=== PATIENT | female | born 1995 | race Caucasian/White ===

== ENCOUNTER 2025-09-22 14:01 | Emergency (ER) | payer OTHER, SELFPAY ==
[2025-09-22 14:03] VITALS: BP 115/81; PULSE 91; RESP 18; TEMP 36.2; O2SAT 99; BMI 21.1
[2025-09-22 15:03] VITALS: BP 105/85; BP 111/76; BP 112/71; PULSE 70; PULSE 77; PULSE 86
[2025-09-22 15:33] LABS: Hematocrit 37.7 % (37-47); Hemoglobin 13.5 g/dL (12.0-15.0); Immature Granulocytes Count 0.030 X10^3/uL (0.0-0.0); Mean Corp Hgb Conc 35.8 g/dL (32-36); Mean Corpuscular Volume 87.5 fL (81-99); Mean Platelet Vol. 10.9 fl (6.2-12.0); NRBC Flagged by Analyzer 0 % (0-5); Platelet Count 148 K/mm3 (150-450); RBC Distribution Width CV 13.6 % (11.6-14.6); RBC Distribution Width SD 44.0 fl (35.1-43.9); Red Blood Count 4.31 M/mm3 (4.2-5.4); White Blood Count 6.1 K/mm3 (4.4-11.0)
[2025-09-22 15:49] LABS: AST(SGOT) 24 U/L (<=31); Alanine Aminotransfer ALT/SGPT 24 U/L (<=34); Albumin, Serum 3.8 g/dL (3.5-5.0); Alkaline Phosphatase 115 U/L (35-104); Anion Gap 8 (5-15); BUN 15 mg/dL (4-19); BUN/Creat Ratio 15.2 RATIO (10-20); Calcium,Total 8.6 mg/dL (7.6-11.0); Carbon Dioxide 23.6 mmol/L (21.0-32.0); Chloride 105 mmol/L (98-108); Estimated Creatinine Clearance 61.39 ml/min (50-250); Globulin 2.4 g/dL (2.2-4.2); Glucose 112 mg/dL (70-99); Potassium 3.9 mmol/L (3.3-5.1)
--- NOTE | 2025-09-22 16:13 | EDS_ITS ---
HPI History of Present Illness Chief Complaint: Hypotension Informant: patient Narrative Narrative: 30-year-old female presenting to the emergency room chief complaint of hypotension. Patient states that she took her labetalol and amlodipine today but an hour and a half later was feeling weak and took her blood pressure and had a systolic in the 80s. She states that she has a history of lupus as well as nephritis has been working over the past several months to improve her kidney function. She follows with all of her care through [facility] in [place]. No syncope. No palpitations no chest pain. Patient states she has been eating and drinking well. PFSH PFSH Allergy/AdvReac Type Severity Reaction Status Date / Time grape Allergy Swelling Verified 09/22/25 14:06 lisinopril Allergy Swelling Verified 09/22/25 14:06 oxcarbazepine (From Allergy Hives Verified 09/22/25 14:06 Trileptal) primidone Allergy Other Verified 09/22/25 14:06 pumpkin Allergy Anaphylaxis Verified 09/22/25 14:06 strawberry Allergy Swelling Verified 09/22/25 14:06 ROS ROS ED Constitutional Constitutional ED: Denies chills, fever(s) or weight loss Eyes Eyes: Denies change in vision or diplopia ENT ENT ED: Denies ear pain, rhinorrhea or sore throat Cardiovascular Cardiovascular: Denies chest pain, orthopnea, palpitations or racing heartbeat Respiratory/Chest Respiratory/Chest: Denies cough, dyspnea or orthopnea Gastrointestinal Gastrointestinal: Denies abdominal pain, diarrhea, nausea or vomiting Genitourinary Genitourinary ED: Denies dysuria, hematuria or urinary frequency Musculoskeletal Musculoskeletal: Denies arthralgias or myalgias Integumentary Denies abscess or rash Neurologic Neurologic: Denies headache(s) or weakness Psychiatric Psychiatric: Denies anxiety, depression, suicidal ideation or suicidal thoughts Endocrine Endocrinology: Denies polydipsia, polyphagia or polyuria Allergic/Immunologic Allergic/Immunologic ED: Denies mouth swelling, tongue swelling or urticaria EXAM Physical Exam Const Vital Signs: 09/22/25 14:03 09/22/25 15:03 Temperature 97.2 F L Temperature Source Temporal Pulse Rate 91 Pulse Rate [Lying] 70 Pulse Rate [Sitting (for 1 minute prior to obtaining)] 77 Pulse Rate [Standing (for 1 minute prior to obtaining)] 86 Respiratory Rate 18 Blood Pressure 115/81 H Blood Pressure [Lying] 112/71 Blood Pressure [Sitting (for 1 minute prior to obtaining)] 111/76 Blood Pressure [Standing (for 1 minute prior to obtaining)] 105/85 H Blood Pressure Mean 92 Blood Pressure Mean [Lying] 84 Blood Pressure Mean [Sitting (for 1 minute prior to obtaining)] 87 Blood Pressure Mean [Standing (for 1 minute prior to obtaining)] 91 Pulse Ox 99 Oxygen Delivery Method Room Air Positive well nourished and well developed General Appearance ED: well developed HEENT Reports normocephalic, head/scalp atraumatic and moist mucous membranes Eyes PERRL and EOMs intact bilaterally Neck no lymphadenopathy, supple and no JVD Resp normal respiratory effort and clear to auscultation bilaterally Cardio regular rate, regular rhythm and no murmurs GI normal to inspection, nondistended, normoactive bowel sounds and non-tender Palpation: soft Back/Spine no CVA tenderness and normal ROM Extremity normal to inspection General Extremety ED: Negative for edema General Extremity: Negative for edema Neuro oriented x3 and CN's II-XII intact bilaterally Sensorium / Orientation: alert Motor Exam: strength 5/5 throughout Psych mental status grossly normal Mood & Affect: Negative for depressed or tearful Skin no rashes or lesions noted and no wounds MDM MDM MDM Narrative Medical decision making narrative: Differential diagnosis includes but not limited to dehydration anemia electrolyte imbalance medication side effect cardiac dysrhythmia Patient appears in a sinus rhythm on the monitor. She is not orthostatic. Her creatinine today is 0.98 which continues to improve her most recent creatinines that she shows me on her phone. White count 6.1 hemoglobin 13.5 slightly thrombocytopenic at 148. Spoke with the patient regarding the above results give her copies that she can take with her to her doctor. She has been noticing that her blood pressure has been trending on the lower side recently and wonders if she needs to remove a blood pressure medicine. As she is taking labetalol twice a day amlodipine once a day we will have her hold her amlodipine and have her trend her blood pressures. Since she noticed that she is starting to become more hypertensive she can add that in the amlodipine but I would recommend that she have early follow-up with her doctors to discuss. History & Record Review Discussion w/independent historian: Patient Additional record(s) reviewed:: Prior outpatient record and Prior labs Lab Data Attestation: I reviewed the patient's lab results. Labs: Laboratory Results - last 24 hr 09/22/25 15:10 WBC 6.1 RBC 4.31 Hgb 13.5 Hct 37.7 MCV 87.5 MCH 31.3 MCHC 35.8 RDW Std Deviation 44.0 H RDW Coeff of Jeremy 13.6 Plt Count 148 L MPV 10.9 Immature Gran % (Auto) 0.500 Neut % (Auto) 75.9 H Lymph % (Auto) 18.5 L Graham % (Auto) 4.8 Eos % (Auto) 0.0 Baso % (Auto) 0.3 Absolute Neuts (auto) 4.6 Absolute Lymphs (auto) 1.12 Nucleated RBC % 0 Sodium 136 Potassium 3.9 Chloride 105 Carbon Dioxide 23.6 Anion Gap 8 BUN 15 Creatinine 0.98 Estim Creat Clear Calc 61.39 Est GFR (MDRD) Non-Af 80 BUN/Creatinine Ratio 15.2 Glucose 112 H Calcium 8.6 Total Bilirubin 0.56 AST 24 ALT 24 Alkaline Phosphatase 115 H Total Protein 6.2 Albumin 3.8 Globulin 2.4 Albumin/Globulin Ratio 1.6 Discharge Plan Triage Chief Complaint: Hypotension ED Provider: Tera Mayo Dx/Rx/DC Orders Clinical Impression: Hypotensive episode, Lupus (systemic lupus erythematosus) Instructions: ED Low Blood Pressure, All Causes Primary Care Provider: Raza Jolly Referrals: Raza Jolly DO [Primary Care Provider, Internal Medicine] - 1 Week Print Language: Argentine Disposition Disposition: Home, Self Care
[2025-09-22 16:41] VITALS: BP 108/76; PULSE 73; RESP 12; TEMP 36.6; O2SAT 98
== END 2025-09-22 16:51 | disposition home or self-care (01) ==
PROVIDERS: Emergency Provider Emergency Medicine; PCP Internal Medicine; Visit Provider Emergency Medicine
DX: I95.9 Hypotension, unspecified (principal); M32.9 Systemic lupus erythematosus, unspecified; Z79.899 Other long term (current) drug therapy
CPT/HCPCS: 80053; 85025; 99285